=== PATIENT | female | born 1980 | race Caucasian/White ===

== ENCOUNTER 2018-08-02 13:03 | Emergency (ER) | payer OTHER ==
[~2018-08-02] VITALS: Ht 162.6 cm; Wt 76.2 kg
[2018-08-02] MEDS ORDERED: TRAMADOL 50 MG50 MG PO (14:25)
[2018-08-02] MEDS ORDERED: NAPROSYN500 MG PO (14:25)
[2018-08-02 14:28] VITALS: BP 114/63
== END 2018-08-02 14:28 | disposition home or self-care (01) ==
LOC: ER 13:03
DX: S16.1XXA Strain of muscle, fascia and tendon at neck level, initial encounter (principal); S70.02XA Contusion of left hip, initial encounter; S40.012A Contusion of left shoulder, initial encounter; S09.8XXA Other specified injuries of head, initial encounter; Z88.8 Allergy status to other drugs, medicaments and biological substances; V49.50XA Passenger injured in collision with unspecified motor vehicles in traffic accident, initial encounter; Y93.89 Activity, other specified; Y92.89 Other specified places as the place of occurrence of the external cause; Y99.8 Other external cause status